=== PATIENT | male | born 1970 ===

== ENCOUNTER 2023-02-16 12:14 | Day surgery (SDC) | payer BC ==
[~2023-02-16] VITALS: Ht 177.8 cm; Wt 92.9 kg
[2023-02-16] MEDS ORDERED: MELOXICAM5 MG (12:47)
[2023-02-16] MEDS ORDERED: ATOR40TA (12:48)
[2023-02-16 14:38] VITALS: BP 116/74
--- NOTE | 2023-02-16 15:47 | NUR ---
02/16/23 1547 Nikhil Matta IV REMOVED INTACT. SITE WNL. PT STATES SYSTOLIC B/P USUALLY IS 120'S AT HOME. HE REPORTED 4/10 PAIN UPON D/C. HE DESCRIBED PAIN TOLERABLE AND EXPRESSED READINESS TO RETURN HOME.
== END 2023-02-16 15:40 | disposition home or self-care (01) ==
LOC: ORSCSDS 12:14
PROVIDERS: Podiatrist Foot & Ankle Surgery
PROC: 0SGM04Z Fusion of Right Metatarsal-Phalangeal Joint with Internal Fixation Device, Open Approach (ICD-10-PCS; principal; 2023-02-16 13:30)
DX: M20.20 Hallux rigidus, unspecified foot (principal); M19.079 Primary osteoarthritis, unspecified ankle and foot; E78.00 Pure hypercholesterolemia, unspecified; Z79.899 Other long term (current) drug therapy
CPT/HCPCS: A9270; C1713; J0690; J1100; J1885; J2250; J2405; J2704; J3010; J7120

== ENCOUNTER 2024-08-02 06:28 | Day surgery (SDC) | payer OTHER ==
[~2024-08-02] VITALS: Ht 177.8 cm; Wt 93.1 kg
[~2024-08-02 06:28] MED LIST: ATOR40TA; MELOXICAM5 MG
[2024-08-02] MEDS ORDERED: Lactated Ringer's 1,000 ML IV ONE ×2 (07:56→08:02)
[2024-08-02] MEDS ORDERED: propofoL 20 ML IV ONE ×2 (08:02)
[2024-08-02 09:03] VITALS: BP 112/76
== END 2024-08-02 09:05 | disposition home or self-care (01) ==
LOC: ORSCSDS 06:28
PROVIDERS: Surgery
PROC: 0DJD8ZZ Inspection of Lower Intestinal Tract, Via Natural or Artificial Opening Endoscopic (ICD-10-PCS; principal; 2024-08-02 08:00)
DX: Z12.11 Encounter for screening for malignant neoplasm of colon (principal); Z83.719 Family history of colon polyps, unspecified; K57.30 Diverticulosis of large intestine without perforation or abscess without bleeding; K64.4 Residual hemorrhoidal skin tags; Z79.899 Other long term (current) drug therapy
CPT/HCPCS: J2704; J7120